=== PATIENT | male | born 1945 | race Caucasian/White ===

== ENCOUNTER 2016-09-18 11:33 | Emergency (ER) | payer MEDICARE, MEDICAID ==
[2016-09-18 11:34] VITALS: BMI 23.6
--- NOTE | 2016-09-18 12:57 | C.PDOC ---
History Of Present Illness 71 Y/O MALE PRESENTS TO ED C/O LEFT CHEST PAIN FOR 5 DAYS. PT NOTES LUMP JUST BELOW LEFT NIPPLE. DENIES SOB, ORTHOPNEA, DIAPHORESIS, NAUSEA, VOMITING, ABDOMINAL PAIN. Time Seen by Provider: 09/18/16 12:12 Chief Complaint (Nursing): Chest Pain History Per: Patient History/Exam Limitations: no limitations Onset/Duration Of Symptoms: Days Current Symptoms Are (Timing): Still Present Quality: "Pain" Associated Symptoms: denies: Dyspnea, Diaphoresis Recent travel outside of the [place]: No Past Medical History Reviewed: Historical Data, Nursing Documentation, Vital Signs Vital Signs: Last Vital Signs Temp 98.4 F 09/18/16 14:41 Pulse 54 L 09/18/16 14:41 Resp 16 09/18/16 14:41 BP 146/77 09/18/16 14:41 Pulse Ox 95 09/18/16 15:17 - Medical History PMH: HTN - [facility] Procedures INFLUENZA VACCINATION (05/08/14) VACCINATION NEC (05/08/14) Family History: States: Unknown Family Hx - Social History Hx Tobacco Use: No Hx Alcohol Use: Yes Hx Substance Use: No - Immunization History Hx Tetanus Toxoid Vaccination: No Hx Influenza Vaccination: Yes Hx Pneumococcal Vaccination: No Review Of Systems Except As Marked, All Systems Reviewed And Found Negative. Constitutional: Negative for: Fever, Chills Cardiovascular: Positive for: Chest Pain Respiratory: Negative for: Cough, Shortness of Breath Gastrointestinal: Negative for: Nausea, Vomiting, Abdominal Pain Skin: Positive for: Other (SUBCUTANEOUS MASS LEFT SIDED CHEST). Negative for: Rash Neurological: Negative for: Weakness, Numbness, Dizziness Physical Exam - Physical Exam Appears: Non-toxic, No Acute Distress Skin: Warm, Dry, No Ecchymosis Head: Atraumatic, Normacephalic Neck: Supple Lymphatic: No Adenopathy, Other (NO AXILLARY, CLAVICLE, OR NECK NODES BILATERALLY) Chest: Symmetrical, Other (1.0 cm DEEP SUBCUTANEOUS NODE AT 8'OCLOCK LEFT BREAST , NO BREAST SWELLING. NIPPLE NORMAL: NO DISCHARGE OR DEFORMITY. SKIN INTACT. ) Cardiovascular: Rhythm Regular, No Murmur Respiratory: Normal Breath Sounds, No Rales, No Rhonchi, No Wheezing Gastrointestinal/Abdominal: Soft, No Tenderness Extremity: Normal ROM, No Pedal Edema, Capillary Refill (< 2 SEC. ) Extremity: Bilateral: Normal Color And Temperature Neurological/Psych: Oriented x3, Normal Speech, Normal Cognition ED Course And Treatment - Laboratory Results Result Diagrams: 09/18/16 12:58 09/18/16 12:58 O2 Sat by Pulse Oximetry: 95 (RA) Pulse Ox Interpretation: Normal - CT Scan/US ULTRASOUND LEFT BREAST Other Rad Studies (CT/US): Read By Radiologist, Radiology Report Reviewed CT/US Interpretation: FINDINGS: In the 7-8 o'clock axis, of the left breast/ chest wall, 2 cm from the nipple, there are 2 adjacent ovoid echogenic masses, mildly heterogeneous. They are smooth and circumscribed and measure 0.8 x 1.1 x 1.5 cm and 1.0 x 0.5 x 1.2 cm. These most likely represent small lipomas. There is no evidence of gynecomastia. These are not felt to be related to breast tissue. There is no other solid or cystic mass identified. IMPRESSION: Two small ovoid echogenic masses correspond to the area of palpable abnormality in the 7-8 o'clock axis of the left chest wall. These are felt to represent two small lipomas. No additional abnormality. BIRADS 2 Benign finding Progress - Re-Evaluation Re-evaluation Note: 09/18/16 12:48 EKG, CXR, BLOODWORK, LEFT BREAST ULTRASOUND ORDERED. TORADOL GIVEN. 09/18/16 15:30 US REPORT D/W PT. ADVISED FU PMD, OTC PAIN RX - Interventions Interventions:: Observation - Data Reviewed Data Reviewed: Lab, Diagnostic imaging, EKG, Old records Disposition Counseled Patient/Family Regarding: Studies Performed, Diagnosis, Need For Followup, Rx Given - Disposition Referrals: YOUR,PMD [Other] Disposition: HOME/ ROUTINE Disposition Time: 15:30 Condition: GOOD Prescriptions: Ibuprofen [Motrin] 600 mg PO Q6 #30 tab Instructions: Lipoma (ED), Chest Wall Pain (ED) Print Language: SWAZI - Clinical Impression Clinical Impression: Breast lipoma, Chest wall pain - Scribe Statement The provider has reviewed the documentation as recorded by the Kayla John Provider Scribe Attestation: All medical record entries made by the Scribe were at my direction and personally dictated by me. I have reviewed the chart and agree that the record accurately reflects my personal performance of the history, physical exam, medical decision making, and the department course for this patient. I have also personally directed, reviewed, and agree with the discharge instructions and disposition.
[2016-09-18 13:04] LABS: BASO % 0.5 % (0.0-2.0); EOS # 0.3 K/uL (0.0-0.7); EOS % 5.7 % (0.0-4.0); HEMATOCRIT 41.3 % (35.0-51.0); LYMPH # 1.3 K/uL (1.0-4.3); LYMPH % 24.9 % (20.0-40.0); MEAN CELL VOLUME 92.3 fL (80.0-94.0); MEAN CORPUSCULAR HEMOGLOBIN 30.3 pg (27.0-31.0); MEAN CORPUSCULAR HGB CONC 32.8 g/dL (33.0-37.0); MEAN PLATELET VOLUME 8.9 fL (7.2-11.7); MONO # 0.6 K/uL (0.0-0.8); WHITE BLOOD COUNT 5.1 K/uL (4.8-10.8)
[2016-09-18 13:09] LABS: CHLORIDE 102 mmol/L (98-107); POTASSIUM 4.3 mmol/L (3.6-5.2); SODIUM 140 mmol/L (132-148)
[2016-09-18 13:12] LABS: BLOOD UREA NITROGEN 10 mg/dL (9-20); CARBON DIOXIDE 27 mmol/L (22-30); GFR AFRICAN-AMERICAN > 60
[2016-09-18 13:13] LABS: CALCIUM 8.8 mg/dl (8.6-10.4); GLUCOSE,RANDOM 85 mg/dL (75-110)
--- NOTE | 2016-09-18 13:30 | RAD ---
HISTORY: chest pain COMPARISON: No prior. TECHNIQUE: Chest PA and lateral FINDINGS: LUNGS: The lungs are well inflated. There is an apparent 8 mm nodular density projecting over the right lower hemithorax. There is no consolidation. PLEURA: No significant pleural effusion identified. No pneumothorax apparent. CARDIOVASCULAR: Normal. Heart is normal in size. There is unfolding of the aorta. OSSEOUS STRUCTURES: No significant abnormalities. VISUALIZED UPPER ABDOMEN: Normal. OTHER FINDINGS: None. IMPRESSION: No active pulmonary disease. 8 mm nodular density projecting over the right lower hemithorax likely represents nipple shadow however follow-up PA radiographs with nipple markers are recommended to confirm the same exclude parenchymal nodule.
[2016-09-18 14:42] VITALS: TEMP 98.4
--- NOTE | 2016-09-18 15:14 | US ---
PROCEDURE: Ultrasound examination left breast HISTORY: BREAST MASS 8 O'CLOCK POSITION COMPARISON: None available TECHNIQUE: Ultrasound examination was performed for evaluation of a palpable abnormality in the left chest wall FINDINGS: In the 7-8 o'clock axis, of the left breast/ chest wall, 2 cm from the nipple, there are 2 adjacent ovoid echogenic masses, mildly heterogeneous. They are smooth and circumscribed and measure 0.8 x 1.1 x 1.5 cm and 1.0 x 0.5 x 1.2 cm. These most likely represent small lipomas. There is no evidence of gynecomastia. These are not felt to be related to breast tissue. There is no other solid or cystic mass identified. IMPRESSION: Two small ovoid echogenic masses correspond to the area of palpable abnormality in the 7-8 o'clock axis of the left chest wall. These are felt to represent two small lipomas. No additional abnormality. BIRADS 2 Benign finding
[2016-09-18 15:55] VITALS: BP 146/71; PULSE 55; RESP 18; O2SAT 98
== END 2016-09-18 16:26 | disposition home or self-care (01) ==
LOC: C.ER 11:33
DX: D17.1 Benign lipomatous neoplasm of skin and subcutaneous tissue of trunk (principal); R07.89 Other chest pain
CPT/HCPCS: 71020; 76642; 80048; 84484; 85025; 96374; 99285; J1885